=== PATIENT | female | born 1935 | race Two or more races ===

== ENCOUNTER 2017-04-21 07:34 | Outpatient (CLI) | payer OTHER | END 2017-04-21 07:45 | disposition home or self-care (01) | LOC: NUCLEAR 07:34 | DX: M05.79 Rheumatoid arthritis with rheumatoid factor of multiple sites without organ or systems involvement (principal); M87.059 Idiopathic aseptic necrosis of unspecified femur | CPT/HCPCS: 78315; A9503 ==

== ENCOUNTER 2017-04-21 08:37 | Outpatient (CLI) | payer OTHER | END 2017-04-21 08:58 | disposition home or self-care (01) | LOC: LAB 08:37 | DX: I10 Essential (primary) hypertension (principal); E11.9 Type 2 diabetes mellitus without complications; E03.8 Other specified hypothyroidism; E55.9 Vitamin D deficiency, unspecified; N39.0 Urinary tract infection, site not specified; E78.2 Mixed hyperlipidemia; E78.1 Pure hyperglyceridemia; M32.10 Systemic lupus erythematosus, organ or system involvement unspecified; M05.79 Rheumatoid arthritis with rheumatoid factor of multiple sites without organ or systems involvement; M06.89 Other specified rheumatoid arthritis, multiple sites; M10.09 Idiopathic gout, multiple sites ==